=== PATIENT | male | born 1985 | race Caucasian/White ===

== ENCOUNTER 2018-01-27 15:14 | Inpatient (IN) | payer BC, OTHER ==
[~2018-01-27] VITALS: Ht 185.4 cm; Wt 64.4 kg
[2018-01-27] MEDS ORDERED: LOPERAMIDE HCL 2 MG CAPSULE PO PRN ×2 (20:15)
[2018-01-27] MEDS ORDERED: LORAZEPAM 2 MG/1 ML VIAL IM PRN (20:15)
[2018-01-27] MEDS ORDERED: METHOCARBAMOL 750 MG TABLET PO PRN (20:15)
[2018-01-27] MEDS ORDERED: MAG HYDROX/AL HYDROX/SIMETH 30 ML LIQUID UDC PO PRN (20:15)
[2018-01-27] MEDS ORDERED: IBUPROFEN 600 MG TABLET PO PRN (20:15)
[2018-01-27] MEDS ORDERED: MAGNESIUM HYDROXIDE 30 ML LIQUID UDC PO PRN (20:15)
[2018-01-27] MEDS ORDERED: LORAZEPAM 1 MG TABLET PO PRN (20:15)
[2018-01-27] MEDS ORDERED: MIRALAX 17 GM POWD.PACK PO PRN (20:15)
[2018-01-27] MEDS ORDERED: CLONIDINE HCL 0.1 MG TABLET PO PRN (20:15)
[2018-01-27] MEDS ORDERED: ONDANSETRON 4 MG/2 ML VIAL IM PRN (20:15)
[2018-01-27] MEDS ORDERED: ONDANSETRON ODT 4 MG TAB.RAPDIS SL PRN (20:15)
[2018-01-27] MEDS ORDERED: ACETAMINOPHEN 325 MG TABLET PO PRN (20:15)
[2018-01-27] MEDS ORDERED: DICYCLOMINE HCL 20 MG TABLET PO PRN (20:15)
[2018-01-27 20:52] LABS: BASOPHILS % (AUTO) 0.3 % (0.0-2.0); EOSINOPHILS # (AUTO) 0.1 K/uL (0.0-0.7); EOSINOPHILS % (AUTO) 1.4 % (0.0-7.0); HEMATOCRIT 42.5 % (36.7-47.1); HEMOGLOBIN 14.9 g/dL (12.5-16.3); LYMPHOCYTES # (AUTO) 0.7 K/uL (20.0-40.0); MEAN CORPUSCULAR HEMOGLOBIN 31.8 uug (23.8-33.4); MEAN CORPUSCULAR HGB CONC 35 g/dL (32.5-36.3); MEAN CORPUSCULAR VOLUME 90.7 fL (73.0-96.2); MONOCYTES # (AUTO) 0.2 K/uL (2.0-10.0); MONOCYTES % (AUTO) 2.5 % (0.0-11.0); NEUTROPHILS # (AUTO) 8.2 K/uL (1.8-8.9); NEUTROPHILS % (AUTO) 87.8 % (38.5-71.5); PLATELET COUNT (AUTO) 136 K/uL (152-348); RED BLOOD CELL COUNT(AUTO) 4.68 MIL/uL (4.06-5.63); WHITE BLOOD COUNT (AUTO) 9.3 K/uL (3.6-10.2)
[2018-01-27 21:02] LABS: ALANINE AMINOTRANSFERASE 19 U/L (16-63); ALKALINE PHOSPHATASE 59 U/L (50-136); AMYLASE 53 U/L (25-115); ASPARTATE AMINOTRANSFERASE 17 U/L (15-37); BILIRUBIN,TOTAL 0.9 mg/dL (0.2-1.0); CARBON DIOXIDE 30 mmol/L (21-32); CHLORIDE 102 mmol/L (98-107); CREATININE 1.7 mg/dL (0.6-1.3); GLUCOSE 117 mg/dL (74-106); LIPASE 76 U/L (73-393); MAGNESIUM 1.7 mg/dL (1.8-2.4); POTASSIUM 3.8 mmol/L (3.5-5.1); TOTAL PROTEIN, SERUM 7.3 g/dL (6.4-8.2); UREA NITROGEN, BLOOD 22 mg/dL (7-18)
[2018-01-27 21:21] LABS: ETHANOL < 3 MG/DL (0-0)
[2018-01-27] MEDS: LORAZEPAM 1 MG TABLET PO PRN (21:33)
[2018-01-27 21:34] LABS: *AMPHETAMINE, URINE POSITIVE (NEGATIVE); *BARBITURATE, URINE NEGATIVE (NEGATIVE); *CANNABINOID, URINE NEGATIVE (NEGATIVE); *COCCAINE, URINE NEGATIVE (NEGATIVE); *OPIATE, URINE NEGATIVE (NEGATIVE); *PHENCYCLIDINE SCREEN,URINE NEGATIVE (NEGATIVE)
[2018-01-27] MEDS: BUPRENORPHINE HCL 2 MG TAB.SUBL SL PRN (21:34)
[2018-01-27 21:40] LABS: THYROID STIMULATING HORMONE 1.694 mIU/mL (0.358-3.740)
[2018-01-27] MEDS ORDERED: [UNRECOGNIZED DRUG - SUPPLY] (23:16)
[2018-01-27] MEDS ORDERED: ASPI1TAB2 PO (23:16)
[2018-01-27] MEDS ORDERED: [UNRECOGNIZED DRUG - SUPPLY] (23:16)
[2018-01-27] MEDS ORDERED: BISM262O28 PO (23:16)
[2018-01-27] MEDS ORDERED: MENT56CR TP (23:16)
[2018-01-27] MEDS ORDERED: TETR15DR97 OP (23:16)
[2018-01-27] MEDS ORDERED: FLUT10.62 INH (23:16)
[2018-01-27] MEDS ORDERED: NAPH15DR57 OP (23:16)
[2018-01-27] MEDS ORDERED: ALBU8.5H8 IH (23:16)
[2018-01-27] MEDS ORDERED: CARB15DR99 OP (23:16)
[2018-01-27] MEDS ORDERED: MAGNESIUM OXIDE 400 MG TABLET PO ONE (23:30)
[2018-01-28] VITALS: BP 133/88
[2018-01-28] MEDS: diphenhydrAMINE 50 MG CAPSULE PO PRN (00:02)
[2018-01-28] MEDS: LORAZEPAM 1 MG TABLET PO PRN ×2 (00:02→08:12)
[2018-01-28] MEDS: HYDROXYZINE PAMOATE 25 MG CAPSULE PO PRN (00:02)
[2018-01-28 08:00] VITALS: BP 111/62
[2018-01-28] MEDS: BUPRENORPHINE HCL 2 MG TAB.SUBL SL PRN (08:12)
[2018-01-28] MEDS: MULTIVITAMINS,THERAPEUTIC TABLET PO SCH (08:12)
[2018-01-28] MEDS ORDERED: ALBUTEROL SULFATE 8 GM HFA.AER.AD IH PRN (08:15)
[2018-01-28] MEDS: [UNRECOGNIZED DRUG - REMARK] INH SCH ×2 (08:22→17:10)
[2018-01-28] MEDS ORDERED: TUBERCULIN,PURIF.PROT.DERIV. 5 TU/0.1 ML TEST ID ONE (09:00)
[2018-01-28 12:00] VITALS: BP 90/62
[2018-01-28] MEDS: PRO AIR MDI INH PRN (14:59)
[2018-01-28] MEDS ORDERED: 5 DAY TAPER BUPRENORPHINE -SERENITY PROTOCOL SL PRN (15:00)
[2018-01-28] MEDS ORDERED: 5 DAY TAPER VALIUM-SERENITY PROTOCOL PO PRN (15:00)
[2018-01-28] MEDS ORDERED: DIAZEPAM 10 MG TABLET PO ONE ×2 (15:00)
[2018-01-28 16:00] VITALS: BP 95/66
[2018-01-28] MEDS: DIAZEPAM 10 MG TABLET PO SCH ×2 (17:08→20:17)
[2018-01-28] MEDS: BUPRENORPHINE HCL 2 MG TAB.SUBL SL SCH ×2 (17:09→20:17)
[2018-01-28] MEDS ORDERED: DIAZEPAM 10 MG TABLET PO PRN ×2 (18:45)
[2018-01-28] MEDS ORDERED: DIAZEPAM 5 MG TABLET PO PRN (18:45)
[2018-01-28 20:19] VITALS: BP 99/56
[2018-01-29 00:05] VITALS: BP 117/51
[2018-01-29] MEDS: PRO AIR MDI INH PRN ×4 (03:20→22:24)
[2018-01-29 07:54] LABS: EOSINOPHILS # (AUTO) 0.3 K/uL (0.0-0.7); EOSINOPHILS % (AUTO) 8.1 % (0.0-7.0); LYMPHOCYTES # (AUTO) 1.4 K/uL (20.0-40.0); LYMPHOCYTES % (AUTO) 43.3 % (20.5-51.5); MEAN CORPUSCULAR HEMOGLOBIN 31.1 uug (23.8-33.4); MEAN CORPUSCULAR HGB CONC 35 g/dL (32.5-36.3); MEAN CORPUSCULAR VOLUME 89.2 fL (73.0-96.2); MONOCYTES # (AUTO) 0.3 K/uL (2.0-10.0); MONOCYTES % (AUTO) 8.1 % (0.0-11.0); NEUTROPHILS # (AUTO) 1.3 K/uL (1.8-8.9); NEUTROPHILS % (AUTO) 39.5 % (38.5-71.5); RED BLOOD CELL COUNT(AUTO) 3.84 MIL/uL (4.06-5.63)
[2018-01-29 07:56] LABS: HEMATOCRIT 34.2 % (36.7-47.1); PLATELET COUNT (AUTO) 82 K/uL (152-348); WHITE BLOOD COUNT (AUTO) 3.3 K/uL (3.6-10.2)
[2018-01-29 07:57] LABS: CREATININE 1.2 mg/dL (0.6-1.3); MAGNESIUM 1.7 mg/dL (1.8-2.4); POTASSIUM 3.7 mmol/L (3.5-5.1)
[2018-01-29 08:00] VITALS: BP 101/62
[2018-01-29] MEDS: DIAZEPAM 10 MG TABLET PO SCH ×3 (08:30→20:35)
[2018-01-29] MEDS: MULTIVITAMINS,THERAPEUTIC TABLET PO SCH (08:30)
[2018-01-29] MEDS: [UNRECOGNIZED DRUG - REMARK] INH SCH ×2 (08:33→17:00)
[2018-01-29 08:35] LABS: BAND % (MANUAL) 1 % (0-10); EOSINOPHILS % (MANUAL) 7 % (0-8); LYMPHOCYTES % (MANUAL) 43 % (20-40); MONOCYTES % (MANUAL) 8 % (2-10); NEUTROPHILS % (MANUAL) 41 % (42-75)
[2018-01-29] MEDS: BUPRENORPHINE HCL 2 MG TAB.SUBL SL SCH ×3 (09:50→20:35)
[2018-01-29 10:11] LABS: HEPATITIS B SURFACE AG Negative (Negative)
[2018-01-29 12:00] VITALS: BP 92/55
[2018-01-29] MEDS ORDERED: MAGNESIUM OXIDE 400 MG TABLET PO ONE (13:00)
[2018-01-29 16:00] VITALS: BP 95/50
[2018-01-29 20:03] VITALS: BP 98/54
[2018-01-29] MEDS: HYDROXYZINE PAMOATE 25 MG CAPSULE PO PRN (20:35)
[2018-01-30] VITALS (7 sets, daily range): BP systolic 81–104; BP diastolic 36–61
[2018-01-30 08:17] LABS: BASOPHILS % (AUTO) 0.8 % (0.0-2.0); EOSINOPHILS # (AUTO) 0.4 K/uL (0.0-0.7); EOSINOPHILS % (AUTO) 9.4 % (0.0-7.0); HEMATOCRIT 37.4 % (36.7-47.1); HEMOGLOBIN 13.2 g/dL (12.5-16.3); LYMPHOCYTES # (AUTO) 1.9 K/uL (20.0-40.0); LYMPHOCYTES % (AUTO) 47.9 % (20.5-51.5); MEAN CORPUSCULAR HGB CONC 35 g/dL (32.5-36.3); MEAN CORPUSCULAR VOLUME 90.9 fL (73.0-96.2); MONOCYTES # (AUTO) 0.3 K/uL (2.0-10.0); MONOCYTES % (AUTO) 6.4 % (0.0-11.0); NEUTROPHILS # (AUTO) 1.4 K/uL (1.8-8.9); NEUTROPHILS % (AUTO) 35.5 % (38.5-71.5); PLATELET COUNT (AUTO) 99 K/uL (152-348); RED BLOOD CELL COUNT(AUTO) 4.12 MIL/uL (4.06-5.63); WHITE BLOOD COUNT (AUTO) 3.9 K/uL (3.6-10.2)
[2018-01-30] MEDS ORDERED: BUPRENORPHINE HCL 2 MG TAB.SUBL SL SCH (09:00)
[2018-01-30] MEDS: PRO AIR MDI INH PRN ×3 (09:12→21:13)
[2018-01-30] MEDS: [UNRECOGNIZED DRUG - REMARK] INH SCH ×2 (09:42→17:00)
[2018-01-30] MEDS: MULTIVITAMINS,THERAPEUTIC TABLET PO SCH (09:43)
[2018-01-30] MEDS: DIAZEPAM 5 MG TABLET PO SCH ×4 (09:43→21:13)
[2018-01-30 09:59] LABS: BASOPHILS % (MANUAL) 1 % (0-2); EOSINOPHILS % (MANUAL) 5 % (0-8); LYMPHOCYTES % (MANUAL) 46 % (20-40); MONOCYTES % (MANUAL) 7 % (2-10); NEUTROPHILS % (MANUAL) 41 % (42-75)
[2018-01-30] MEDS: BUPRENORPHINE HCL 2 MG TAB.SUBL SL SCH ×2 (14:59→21:13)
[2018-01-31] VITALS: BP 100/36
[2018-01-31] MEDS: diphenhydrAMINE 50 MG CAPSULE PO PRN (00:39)
[2018-01-31] MEDS: PRO AIR MDI INH PRN ×2 (07:51→15:36)
[2018-01-31 08:00] VITALS: BP 106/53
[2018-01-31] MEDS: [UNRECOGNIZED DRUG - REMARK] INH SCH ×2 (09:30→17:13)
[2018-01-31] MEDS: MULTIVITAMINS,THERAPEUTIC TABLET PO SCH (09:31)
[2018-01-31] MEDS: BUPRENORPHINE HCL 2 MG TAB.SUBL SL SCH ×3 (09:31→22:01)
[2018-01-31] MEDS: DIAZEPAM 5 MG TABLET PO SCH ×3 (09:31→22:01)
[2018-01-31 12:00] VITALS: BP 99/48
[2018-01-31 16:00] VITALS: BP 105/53
[2018-01-31 20:00] VITALS: BP 111/55
[2018-02-01] VITALS: BP 106/52
[2018-02-01 04:00] VITALS: BP 101/51
[2018-02-01 08:02] VITALS: BP 83/36
[2018-02-01] MEDS ORDERED: BUPRENORPHINE HCL 2 MG TAB.SUBL SL SCH (09:00)
[2018-02-01] MEDS: [UNRECOGNIZED DRUG - REMARK] INH SCH ×2 (09:00→17:00)
[2018-02-01] MEDS: PRO AIR MDI INH PRN ×2 (09:49→23:26)
[2018-02-01] MEDS: MULTIVITAMINS,THERAPEUTIC TABLET PO SCH (09:50)
[2018-02-01] MEDS: DIAZEPAM 5 MG TABLET PO SCH ×2 (09:50→21:50)
[2018-02-01 12:00] VITALS: BP 107/54
[2018-02-01 16:00] VITALS: BP 104/48
[2018-02-01 20:00] VITALS: BP 114/62
[2018-02-02] VITALS: BP 105/59
[2018-02-02 04:00] VITALS: BP 98/55
[2018-02-02 08:00] VITALS: BP 100/49
[2018-02-02] MEDS: MULTIVITAMINS,THERAPEUTIC TABLET PO SCH (09:00)
[2018-02-02] MEDS: [UNRECOGNIZED DRUG - REMARK] INH SCH ×2 (09:00→17:00)
[2018-02-02] MEDS: PRO AIR MDI INH PRN ×3 (09:47→23:07)
[2018-02-02 12:00] VITALS: BP 99/46
[2018-02-02 16:00] VITALS: BP 123/74
[2018-02-02 20:00] VITALS: BP 105/47
[2018-02-02] MEDS: diphenhydrAMINE 50 MG CAPSULE PO PRN (23:07)
[2018-02-03 08:08] VITALS: BP 96/42
[2018-02-03] MEDS: MULTIVITAMINS,THERAPEUTIC TABLET PO SCH (08:51)
[2018-02-03] MEDS: [UNRECOGNIZED DRUG - REMARK] INH SCH ×2 (08:52→08:55)
[2018-02-03] MEDS: PRO AIR MDI INH PRN (08:53)
== END 2018-02-03 09:32 | disposition home or self-care (01) | DRG 895 ==
LOC: SRC 18:27
PROVIDERS: ADMIT Family Medicine Addiction Medicine; ATTEND Family Medicine Addiction Medicine
PROC: HZ2ZZZZ Detoxification Services for Substance Abuse Treatment (ICD-10-PCS; principal; 2018-01-27)
PROC: HZ31ZZZ Individual Counseling for Substance Abuse Treatment, Behavioral (ICD-10-PCS; 2018-01-30)
PROC: HZ41ZZZ Group Counseling for Substance Abuse Treatment, Behavioral (ICD-10-PCS; 2018-02-02)
DX: F13.230 Sedative, hypnotic or anxiolytic dependence with withdrawal, uncomplicated (principal); F11.23 Opioid dependence with withdrawal; E83.42 Hypomagnesemia; D69.6 Thrombocytopenia, unspecified; F41.9 Anxiety disorder, unspecified; J45.909 Unspecified asthma, uncomplicated; F17.210 Nicotine dependence, cigarettes, uncomplicated; E86.0 Dehydration; R79.89 Other specified abnormal findings of blood chemistry; F32.9 Major depressive disorder, single episode, unspecified; F15.23 Other stimulant dependence with withdrawal; D72.819 Decreased white blood cell count, unspecified
CPT/HCPCS: 36415; 70030-TC; 80307; 80324; 80346; 83690; 83735; 84443; 85025; 86580; 86592; 86705; 86803; 87340; 87806; A4663; G0480; J3535; Q0163